=== PATIENT | female | born 1985 | race Caucasian/White ===

== ENCOUNTER 2019-01-24 11:51 | Inpatient (IN) | payer BC ==
[~2019-01-24] VITALS: Ht 167.6 cm; Wt 83.1 kg
[2019-01-24 12:02] VITALS: Ht 167.6 cm; Wt 83.1 kg
[2019-01-24 12:51] LABS: PLATELET COUNT 382 x10^3mcL (130-400)
[2019-01-24 12:52] LABS: BASOPHIL % 0 % (0-2); RED CELL DISTRIBUTION WIDTH 15.2 % (11.5-14.5)
[2019-01-24 12:58] LABS: CALCIUM 8.2 mg/dL (8.5-10.1); CARBON DIOXIDE 24.2 mmol/L (21-32); CHLORIDE SERUM 103 mmol/L (98-107); CREATININE SERUM 0.8 mg/dL (0.6-1.0); GFR1 > 60 mL/min; GLUCOSE SERUM 110 mg/dL (74-106); POTASSIUM SERUM 3.9 mmol/L (3.5-5.1); SODIUM SERUM 138 mmol/L (136-145)
[2019-01-24 13:08] LABS: ALKALINE PHOSPHATASE 86 U/L (46-116); ALT/SGPT 14 U/L (14-59); AST/SGOT 15 U/L (15-37); BILIRUBIN TOTAL 1.07 mg/dL (0.20-1.00); TOTAL PROTEIN, SERUM 7.8 g/dL (6.4-8.2)
[2019-01-24 13:10] LABS: T3 TOTAL 0.93 ng/mL
[2019-01-24 13:11] LABS: UA SPECIFIC GRAVITY >=1.030 (1.005-1.035); microscopic required? YES; urine erythrocyte NEGATIVE (NEGATIVE)
[2019-01-24 13:13] LABS: FREE T4 1.44 ng/dL (0.76-1.46); T4(THYROXINE) 8.4 ug/dL (4.7-13.3)
[2019-01-24 13:26] LABS: CK-MB < 0.5 ng/mL (0-3.6); CREATINE KINASE 21 U/L (26-192)
[2019-01-24 13:38] LABS: ALBUMIN 2.8 g/dL (3.4-5.0); C REACTIVE PROTEIN 32.1 mg/dL (<=0.9)
[2019-01-24 14:38] LABS: ERYTHROCYTE SED RATE 103 mm/hr (0-20)
[2019-01-24 15:16] LABS: AMPHETAMINE QUAL UR NONE DETECTED (See below)
[2019-01-24 16:08] VITALS: BP 114/62
[2019-01-24 20:15] VITALS: BP 110/75
[2019-01-24 21:15] VITALS: BP 110/75
[2019-01-25 05:31] VITALS: BP 112/67
[2019-01-25 07:18] LABS: PLATELET COUNT 372 x10^3mcL (130-400)
[2019-01-25 07:48] LABS: RED CELL DISTRIBUTION WIDTH 15.5 % (11.5-14.5)
[2019-01-25 07:49] LABS: BASOPHIL % 0 % (0-2); CALCIUM 8.2 mg/dL (8.5-10.1); CHLORIDE SERUM 107 mmol/L (98-107); CREATININE SERUM 0.7 mg/dL (0.6-1.0); GFR1 > 60 mL/min; GLUCOSE SERUM 97 mg/dL (74-106); PHOSPHOROUS 3.4 mg/dL (2.5-4.9); POTASSIUM SERUM 3.9 mmol/L (3.5-5.1); SODIUM SERUM 139 mmol/L (136-145)
[2019-01-25 08:43] VITALS: BP 117/70
[2019-01-25 12:40] VITALS: BP 106/54
[2019-01-25 16:50] VITALS: BP 125/76
[2019-01-25 21:42] VITALS: BP 115/64
[2019-01-26 05:36] VITALS: BP 105/49
[2019-01-26 07:10] LABS: PLATELET COUNT 379 x10^3mcL (130-400)
[2019-01-26 07:24] LABS: CALCIUM 7.9 mg/dL (8.5-10.1); CARBON DIOXIDE 26.7 mmol/L (21-32); CHLORIDE SERUM 106 mmol/L (98-107); CREATININE SERUM 0.7 mg/dL (0.6-1.0); GFR1 > 60 mL/min; GLUCOSE SERUM 101 mg/dL (74-106); MAGNESIUM 1.7 mg/dL (1.8-2.4); PHOSPHOROUS 3.4 mg/dL (2.5-4.9); POTASSIUM SERUM 3.3 mmol/L (3.5-5.1); SODIUM SERUM 141 mmol/L (136-145)
[2019-01-26 07:27] LABS: BASOPHIL % 0 % (0-2); RED CELL DISTRIBUTION WIDTH 15.7 % (11.5-14.5)
[2019-01-26 08:32] VITALS: BP 149/78
[2019-01-26 17:13] VITALS: BP 130/72
[2019-01-26 21:30] VITALS: BP 118/71
[2019-01-27 04:55] VITALS: BP 114/67
[2019-01-27 06:36] LABS: BASOPHIL % 0.1 % (0-2)
[2019-01-27 06:52] LABS: CALCIUM 8.8 mg/dL (8.5-10.1); CARBON DIOXIDE 25.9 mmol/L (21-32); CHLORIDE SERUM 107 mmol/L (98-107); CREATININE SERUM 0.7 mg/dL (0.6-1.0); GFR1 > 60 mL/min; GLUCOSE SERUM 119 mg/dL (74-106); POTASSIUM SERUM 3.6 mmol/L (3.5-5.1); SODIUM SERUM 142 mmol/L (136-145)
[2019-01-27 07:09] LABS: PLATELET COUNT 439 x10^3mcL (130-400); RED CELL DISTRIBUTION WIDTH 15.7 % (11.5-14.5)
[2019-01-27 08:53] VITALS: BP 137/80
[2019-01-27 10:03] VITALS: BP 137/80
[2019-01-27 11:59] VITALS: BP 130/74
[2019-01-27 16:04] VITALS: BP 119/67
[2019-01-27 20:25] VITALS: BP 133/89
[2019-01-28 05:18] VITALS: BP 108/61
[2019-01-28 06:41] LABS: BASOPHIL % 0 % (0-2); PLATELET COUNT 459 x10^3mcL (130-400); RED CELL DISTRIBUTION WIDTH 15.8 % (11.5-14.5)
[2019-01-28 06:45] LABS: CALCIUM 8.3 mg/dL (8.5-10.1); CARBON DIOXIDE 27.7 mmol/L (21-32); CHLORIDE SERUM 108 mmol/L (98-107); CREATININE SERUM 0.7 mg/dL (0.6-1.0); GFR1 > 60 mL/min; GLUCOSE SERUM 131 mg/dL (74-106); POTASSIUM SERUM 3.6 mmol/L (3.5-5.1); SODIUM SERUM 144 mmol/L (136-145)
[2019-01-28 09:02] VITALS: BP 133/84
[2019-01-28 13:07] VITALS: BP 135/76
[2019-01-28 17:22] VITALS: BP 134/77
[2019-01-28 20:42] VITALS: BP 132/69
[2019-01-29 05:41] VITALS: BP 132/68
[2019-01-29 06:59] LABS: BASOPHIL % 0.1 % (0-2)
[2019-01-29 07:10] LABS: CALCIUM 8.6 mg/dL (8.5-10.1); CARBON DIOXIDE 28.5 mmol/L (21-32); CHLORIDE SERUM 105 mmol/L (98-107); CREATININE SERUM 0.7 mg/dL (0.6-1.0); GFR1 > 60 mL/min; GLUCOSE SERUM 108 mg/dL (74-106); POTASSIUM SERUM 3.9 mmol/L (3.5-5.1); SODIUM SERUM 142 mmol/L (136-145)
[2019-01-29 08:21] LABS: PLATELET COUNT 542 x10^3mcL (130-400); RED CELL DISTRIBUTION WIDTH 16.2 % (11.5-14.5)
[2019-01-29 08:51] VITALS: BP 143/77
[2019-01-29 13:16] VITALS: BP 134/69
[2019-01-29 17:29] VITALS: BP 137/81
[2019-01-29 20:50] VITALS: BP 134/86
[2019-01-30 05:21] VITALS: BP 127/55
[2019-01-30 06:23] LABS: BASOPHIL % 0.1 % (0-2)
[2019-01-30 06:28] LABS: CALCIUM 7.7 mg/dL (8.5-10.1); CARBON DIOXIDE 30.3 mmol/L (21-32); CHLORIDE SERUM 105 mmol/L (98-107); CREATININE SERUM 0.8 mg/dL (0.6-1.0); GFR1 > 60 mL/min; GLUCOSE SERUM 82 mg/dL (74-106); POTASSIUM SERUM 3.4 mmol/L (3.5-5.1); SODIUM SERUM 141 mmol/L (136-145)
[2019-01-30 07:20] LABS: RED CELL DISTRIBUTION WIDTH 16.1 % (11.5-14.5)
[2019-01-30 07:33] LABS: PATH REVIEW for HEMA NO
[2019-01-30 07:34] LABS: PLATELET COUNT 535 x10^3mcL (130-400)
[2019-01-30 08:46] VITALS: BP 128/74
[2019-01-30 12:23] VITALS: BP 123/66
[2019-01-30 12:53] VITALS: BP 123/66
[2019-01-30 17:11] VITALS: BP 132/67
[2019-01-30 20:26] VITALS: BP 106/54
[2019-01-31 04:31] VITALS: BP 114/78
[2019-01-31 07:08] LABS: CHLORIDE SERUM 103 mmol/L (98-107); CREATININE SERUM 0.7 mg/dL (0.6-1.0); GFR1 > 60 mL/min; GLUCOSE SERUM 80 mg/dL (74-106); POTASSIUM SERUM 3.4 mmol/L (3.5-5.1); SODIUM SERUM 140 mmol/L (136-145)
[2019-01-31 07:26] LABS: BASOPHIL % 0.1 % (0-2)
[2019-01-31 07:34] LABS: RED CELL DISTRIBUTION WIDTH 16.6 % (11.5-14.5)
[2019-01-31 07:35] LABS: PLATELET COUNT 560 x10^3mcL (130-400)
[2019-01-31 08:17] VITALS: BP 122/63
[2019-01-31 12:29] VITALS: BP 110/66
[2019-01-31 16:37] VITALS: BP 132/85
[2019-01-31 20:27] VITALS: BP 123/54
[2019-02-01 05:43] VITALS: BP 115/70
[2019-02-01 08:36] VITALS: BP 129/71
[2019-02-01] MEDS ORDERED: LEVOFLOXACIN500 M1 PO (09:19)
[2019-02-01] MEDS ORDERED: MEDDP PO (09:20)
[2019-02-01] MEDS ORDERED: MUCINEX600 MG PO (09:21)
[2019-02-01 09:45] VITALS: BP 129/71
== END 2019-02-01 12:47 | disposition home or self-care (01) | DRG 871 ==
LOC: ED 11:51 → DU 13:52
PROVIDERS: Internal Medicine; Specialist; ADMIT Internal Medicine
DX: A41.9 Sepsis, unspecified organism (principal); J18.9 Pneumonia, unspecified organism; J96.01 Acute respiratory failure with hypoxia; E44.0 Moderate protein-calorie malnutrition; D64.9 Anemia, unspecified; Z88.5 Allergy status to narcotic agent; Z88.8 Allergy status to other drugs, medicaments and biological substances; E86.0 Dehydration; Z68.29 Body mass index [BMI] 29.0-29.9, adult; E83.51 Hypocalcemia; R65.20 Severe sepsis without septic shock; E66.01 Morbid (severe) obesity due to excess calories
CPT/HCPCS: 84439; 87804; 90658; 90732; 94150; 97116-GP; 97530-GP; G0378; J0456; J0696; J1885; J2405; J2543; J2920; J3010; J7030; J7512; J7620; J7626; Q0092